=== PATIENT | female | born 1970 | race Caucasian/White ===

== ENCOUNTER 2019-11-24 02:17 | Day surgery (SDC) | payer OTHER, SELFPAY ==
[2019-11-20 15:30] VITALS: BMI 25.7
--- NOTE | ~2019-11-24 | XR_ITS ---
EXAMINATION: XR surgery orthopedic DATE: 11/24/2019 14:59 INDICATION: Distal right radius fracture. TECHNIQUE: 2 intraoperative fluoroscopic views of right wrist were obtained. I was not present. Fluor oscopy exposure time was 14 seconds. COMPARISON: Right wrist radiographs 11/16/2019 FINDINGS: There is a comminuted fracture of distal radial metaphysis in near anatomic alignment with internal fixation with volar plate and screws. Joint spaces are normal. IMPRESSION: 1. Comminuted fracture of distal right radius in near-anatomic alignment status post open reduction i nternal fixation. Reviewed, dictated and finalized at location B. OGICAL TECHNICAL OFFICER IMPRESSION: 1. Comminuted fracture of distal right radius in near-anatomic alignment status post open reduction internal fixation.
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
--- NOTE | 2019-11-24 08:18 | WPDANESPNB ---
Anes - Peripheral Nerve Block Date/Time: 11/24/19 08:18 I have discussed with the patient/family/POA the placement of a peripheral nerve block for post-operative pain management, including associated risks, benefits, complications, and side effects. Alternative methods of post-operative analgesia were detailed. Questions were solicited and answers provided to the satisfaction of the patient/family/POA. Time-Out: A pre-procedural Time-Out was completed immediately before starting the procedure and confirmed: Patient Identification, Site, Procedure, Patient Position and the Availability of Requisite Equipment. Clinical Indications: Acute post-operative pain management requested by the operative surgeon. Nerve Block Insertion Note Anes-nerve block: supraclavicular right Patient position: supine Skin prep: chlorhexidine Needle: 22 gauge, stimulating, insulated echogenic needle. Needle length: 50 mm Technique: ultrasound Injectate: bupivacaine 0.5% with epi 5 mcg/ml (30cc) Observations: tolerated well Complications: none Procedure start time:: 1338 Procedure end time:: 1341
[2019-11-24] MEDS: LACTATED RINGERS 1,000 ML 30 ML IV CONT ×2 (11:30→15:05)
[2019-11-24 11:45] VITALS: BP 116/65; PULSE 54; RESP 18; TEMP 37.1; O2SAT 100
--- NOTE | 2019-11-24 13:10 | SUR.PREOP ---
1300- pt stated rt wrist pain 5/10. denies nausea. spoke with anesthsia and ordered fentanyl 25 mcg ivp for pain
[2019-11-24] MEDS: SCOPOLAMINE 1.5 MG PATCH TRANSDERM (13:45)
--- NOTE | 2019-11-24 13:46 | WPDHPUPDATE1 ---
History and Physical Update Update Date/Time: 11/24/19 13:46 History and Physical has been reviewed, including an updated exam of the patient. There are NO changes in the patient's condition. Risks, benefits, and alternatives have been discussed and questions answered. Patient agrees to proceed with procedure.
[2019-11-24] MEDS: ceFAZolin 2 GM/D5W 50 ML 2 GM/50 ML BAG IVPB (13:49)
[2019-11-24 15:05] VITALS: BP 115/63; PULSE 74; RESP 16; TEMP 36.4; O2SAT 98
--- NOTE | 2019-11-24 15:10 | P.OP_ITS ---
Procedure Note - Detailed Date of procedure: 11/24/19 Pre-op diagnosis: Right Distal Radius Fracture Post-op diagnosis: same Procedure performed: Open reduction internal fixation right distal radius fracture with fluoroscopic assistance. Description of procedure: The patient was identified and the proper side identified. In the preop holding area, the anesthesia team performed a right upper extremity block. She was taken back to the operating room, transferred to the or table positioning her supine taking care to pad her torso and extremities. After general anesthetic induction and intubation, a nonsterile tourniquet was placed high on the right arm which was prepped and draped in the usual sterile fashion. The extremity was exsanguinated and tourniquet inflated to 250 mmHg remaining up for approximately 42 minutes. A volar longitudinal incision was made along the FCR tendon distally. The subcutaneous tissue was sharply dissected protecting neurovascular structures. The FCR tendon was released from its sheath and retracted ulnarly. This allowed for the deep fascia of the forearm to be divided longitudinally in line with the incision. Care was taken to protect the volar compartment structures as well as the radial nerve and radial vascular structures. The pronator quadratus was elevated off of the distal radius allowing for inspection of the fracture site. The fracture fragments were disimpacted and able to be realigned virtually anatomically with fluoroscopic assistance. They were secured in this position with a short narrow right plate from the DVR set. The plate was applied with fluoroscopic visualiz ation to avoid penetration of the joint and to ensure optimal hardware placement. Once the plate was secure the overall construct was assessed fluoroscopically on the AP and lateral views. The virtually anatomic reduction was held very nicely. The construct was stable. The wound was irrigated with a copious amount of sterile antibiotic solution. Skin edges were reapproximated with two 0 strata fix and tissue adhesive. Sterile dressing was applied. Tourniquet was released. A well-padded short-arm volar wrist splint was fashioned. She tolerated the procedure well. There were no known i ntraoperative complications. Estimated blood loss was negligible. Anesthesia: GLMA Surgeon: Edilberto Key MD Estimated blood loss (mL): 5 Tourniquet time (min): 42 Drains: No Packing: No Pathology: none sent Complications: No immediate complications Condition: stable Disposition: PACU
--- NOTE | 2019-11-24 15:12 | SUR.OPER ---
PATIENT HAS PLAIN ARM SLING WITH HER AND DR ZAVALA AWARE. TO PACU WITH PILLOW UNDER RIGHT ARM/+1 CAPILLARY REFILL TO NAILBED RIGHT FINGERS. PATIENT WITH + SENSATION TO ALL FINGERS PRE OP.
--- NOTE | 2019-11-24 15:16 | SUR.OPER ---
RIGHT DISTAL RADIUS FX/DVR ANATOMIC VOLAR PLATING SYSTEM WITH DNP ANATOMIC DORSAL PLATES AND F3 FRAGMENT PLATES.
[2019-11-24 15:20] VITALS: BP 104/72; PULSE 65; RESP 18; O2SAT 95
[2019-11-24 15:35] VITALS: BP 108/78; PULSE 61; RESP 16; O2SAT 95
[2019-11-24 15:40] VITALS: BP 100/63; PULSE 69; RESP 16
[2019-11-24 16:10] VITALS: BP 112/66; PULSE 60; RESP 16
== END 2019-11-24 16:25 | disposition home or self-care (01) ==
PROVIDERS: Visit Provider Orthopaedic Surgery
PROC: (CPT 25575; principal; 2019-11-24 12:30)
DX: S52.551A Other extraarticular fracture of lower end of right radius, initial encounter for closed fracture (principal); X58.XXXA Exposure to other specified factors, initial encounter; G89.18 Other acute postprocedural pain
CPT/HCPCS: 25607; 64413; 76000; A9270; C1713; J0690; J1100; J2250; J2405; J2704; J3010; J7120